=== PATIENT | female | born 1960 | race Caucasian/White ===

== ENCOUNTER 2023-02-10 09:48 | Outpatient (CLI) | payer MEDICARE, OTHER, SELFPAY ==
--- NOTE | 2023-02-10 10:08 | MM_ITS ---
WS: [email or web address] BILATERAL SCREENING DIGITAL TOMOSYNTHESIS MAMMOGRAM WITH CAD HISTORY: SCREENING COMPARISON: 07/29/2021, 12/24/2019 Bilateral CC and MLO views with tomosynthesis and synthetic mammography submitted. Computer aided det ection analyzed. Breast composition: There are scattered areas of fibroglandular density. No suspicious masses, microc alcifications or architectural distortion. IMPRESSION: MM/[place] [id number] BI-RADS: 2-Benign FOLLOW UP: 1 Year Follow-up
== END 2023-02-10 09:49 | disposition home or self-care (01) ==
LOC: RAD 09:53
PROVIDERS: PCP Family Medicine; Visit Provider Family Medicine
DX: Z12.31 Encounter for screening mammogram for malignant neoplasm of breast (principal)
CPT/HCPCS: 77063; 77067

== ENCOUNTER 2023-05-23 08:34 | Outpatient (CLI) | payer MEDICARE, OTHER, SELFPAY ==
--- NOTE | 2023-05-23 | MR_ITS ---
WS: [email or web address] MRI THORACIC SPINE without contrast HISTORY: THORACIC SPINE PAIN COMPARISON:, Right-sided pain TECHNIQUE: Multiplanar sequences are performed in sagittal and axial planes. Mild increase in thoracic kyphosis. No marrow edema or acute fracture. Signal within the cord is norm al. No cord enlargement or atrophy. No cord compression. Small central disc protrusions at T3-4, T4-5, T5-6, T7-8 and LEFT paracentral at T9-10, RIGHT paracentral at T6-7. None of the disc contact the thoracic cord. There is a larger cent ral disc protrusion at T12-L1 without cord contact. Facet joint arthritis most significant at T10-11 with moderate foraminal stenosis. IMPRESSION: 1. No acute thoracic spine fracture. 2. Multilevel small disc protrusions as above without cord contact. The largest disc protrusion is a t T11 L1. 3. Facet joint arthritis in the mid to lower thoracic spine. Most significant at T10-11 resulting in moderate foraminal stenosis.
--- NOTE | 2023-05-23 08:54 | MR_ITS ---
WS: [email or web address] MRI LUMBAR SPINE NONCONTRAST HISTORY: LOW BACK PAIN COMPARISON: None available. TECHNIQUE: Sagittal and axial multisequence imaging is submitted. Curvature and scoliosis thoracic and lumbar spines. Mild LEFT curvature lumbar spine. Slight increase in the lumbar lordosis. No marrow edema or acute fracture. Mild disc desiccation at L4-5 and L5-S1. Conus terminates normally at L1-2 disc level. T12-L1: Moderate size central disc protrusion with no nerve root contact. L1-L2: Very mild annular disc bulging. Shallow central disc protrusion. No stenosis. L2-L3: Mild annular disc bulging with ligamentum flavum and facet arthritis. Mild bilateral foraminal stenosis. L3-L4: Mild annular disc bulging with moderate ligamentum flavum and facet arthritis. No disc protrus ions. There is mild disc contact on the traversing L4 nerve roots. No foraminal stenosis. L4-L5: Diffuse annular disc bulging with marked facet joint arthritis and ligamentum flavum hypertrop hy. Encroachment upon the thecal sac resulting in moderate central and bilateral subarticular recess stenosis. Mild bilateral foraminal stenosis, LEFT greater than RIGHT. The most significant disc encro achment upon the RIGHT traversing L5 nerve root. L5-S1: Annular disc bulging encroaching upon the ventral thecal sac. Encroachment but no displacement of the S1 nerve roots. Disc and osteophyte encroachment causing mild bilateral foraminal stenosis. T here is very slight contact on the L5 nerve roots. Mild atherosclerosis aorta. Absent LEFT kidney. No kidney is identified in the renal bed. Marked enlargement of the liver. Liver measures at least 21.8 cm in length. IMPRESSION: 1. L4-5: Moderate central and bilateral subarticular recess stenosis due to disc and facet joint art hritis. Mild foraminal stenosis. There is disc contacting the RIGHT traversing L5 nerve root. 2. L5-S1: Mild bilateral foraminal stenosis with very slight disc contacting the L5 nerve roots. 3. T12-L1: Moderate size central disc protrusion. 4. L2-3: Mild foraminal stenosis. 5. L3-4: Moderate ligamentum flavum and facet arthritis. Very minimal disc contacting the traversing L4 nerve roots. 6. Absent LEFT kidney. 7. Marked hepatomegaly. Liver measures 21.8 cm in length.
== END 2023-05-23 08:35 | disposition home or self-care (01) ==
LOC: RAD 08:36
PROVIDERS: PCP Family Medicine; Visit Provider Family Medicine
DX: M54.50 Low back pain, unspecified (principal); M48.07 Spinal stenosis, lumbosacral region
CPT/HCPCS: 72146; 72148

== ENCOUNTER 2023-06-20 08:47 | Outpatient (CLI) | payer MEDICARE, SELFPAY ==
--- NOTE | 2023-06-20 08:52 | CT_ITS ---
WS: [email or web address] CT ABDOMEN WITH CONTRAST, 3 phase HISTORY: HEPATOMEGALY Contiguous single phase 3 mm axial imaging performed to the abdomen. Oral contrast has not been provi ded. Coronal and sagittal reformats are submitted. All CT scans at [facility] use at least on e of these dose optimization techniques: automated exposure control; mA and/or kV adjustment per luana ent size (includes targeted exams where dose is matched to clinical indication); or iterative reconst ruction. IV CONTRAST: Omnipaque 350; 100 mL IV. Oral contrast: No DLP: 1881.73 mGy.cm COMPARISON: Ultrasound liver 05/31/2023 Lower thorax: Lung bases are clear. Heart is normal size. Small hiatal hernia. Liver/biliary system: Liver is markedly enlarged extending over a length of 21.2 cm to the level of t he iliac crest. Hounsfield units are consistent with advanced hepatic steatosis. No enhancing masses. No cystic or solid mass. Normal portal vein. Gallbladder: Normally distended gallbladder with numerous small stones. No wall thickening or adjacen t inflammation. Pancreas: Normal size pancreas and pancreatic duct. No adjacent inflammation. Spleen: Normal size spleen. No mass or infarct. Adrenal glands: Normal. Right kidney: 13.5 cm in length. Kidney is slightly enlarged. There is no mass or obstruction. No sri cification. Left kidney: Prior nephrectomy. No recurrent mass in the renal bed. Aorta: Mild atherosclerosis with no aneurysm. Lymphadenopathy: None. Free fluid: None. GI tract: As visualized through the abdomen. No abnormality. There is no obstruction. Abdominal wall: Unremarkable abdominal wall. No hernia. Visualized osseous structures: Mild scoliosis. No expansile destructive bone lesions. IMPRESSION: 1. Status post LEFT nephrectomy. 2. Markedly enlarged liver with severe hepatic steatosis. No mass. 3. Cholelithiasis without acute cholecystitis.
[2023-06-20] MEDS: iohexol 350 mg/mL 500 mL Btl (per mL) IV (09:55)
== END 2023-06-20 08:48 | disposition home or self-care (01) ==
LOC: RAD 08:47
PROVIDERS: PCP Family Medicine; Visit Provider Family Medicine
DX: K76.0 Fatty (change of) liver, not elsewhere classified (principal); R16.0 Hepatomegaly, not elsewhere classified; Z90.5 Acquired absence of kidney; Z90.49 Acquired absence of other specified parts of digestive tract
CPT/HCPCS: 74170; Q9967

== ENCOUNTER 2025-03-12 07:10 | Outpatient (CLI) | payer MEDICARE, OTHER, SELFPAY ==
--- NOTE | 2025-03-12 07:20 | MR_ITS ---
WS: [email or web address] MRI CERVICAL SPINE NONCONTRAST TECHNIQUE: Sagittal T1, T2 and STIR imaging. Axial T2, gradient, and fiesta imaging. CLINICAL INFORMATION: LEFT CERVICAL RADICULOPATHY COMPARISON: None. FINDINGS: Straightening of the normal cervical lordosis. No high-grade central canal narrowing. Cord signal is normal. C2-C3: Mild facet arthropathy. Spinal canal and foramen are patent. C3-C4: Mild disc osteophyte ridging. Mild facet arthropathy. Spinal canal and foramen are patent. C4-C5: Mild disc bulging with mild facet arthropathy. Endplate ridging. Spinal canal and foramen are patent. C5-C6: Disc osteophyte complex with endplate ridging. Moderate RIGHT and mild LEFT bony foraminal narrowing. Mild facet arthropathy. C6-C7: Mild disc bulging with slight effacement of the ventral thecal sac. Mild facet arthropathy. Spinal canal and foramen are patent. C7-T1: Spinal canal and foramen are patent. Incidental hemangioma T4 vertebral body. Visualized brain stem structures: Normal. Prevertebral soft tissues: Normal. Partially visualized RIGHT thyroid nodule measuring 3.5 x 1.8 cm. This can be followed up with ultrasound on an elective basis. MR/MR cervical spin wo con* [id number] IMPRESSION: 1. Mild disc bulging C4-C6 with slight effacement of the ventral thecal sac. N o significant central canal stenosis. 2. Moderate RIGHT C5-C6 bony foraminal narrowing. Mild LEFT C5-6 foraminal mercedes rowing. 3. Mild to moderate facet arthropathy C4-C5 C5-C6 and C6-C7. 4. Partially visualized RIGHT thyroid nodule measuring 3.5 x 1.8 cm. This can be followed up with ultrasound on an elective basis.
== END 2025-03-12 07:11 | disposition home or self-care (01) ==
PROVIDERS: PCP Family Medicine; Visit Provider Family Medicine
DX: M50.321 Other cervical disc degeneration at C4-C5 level (principal); M50.322 Other cervical disc degeneration at C5-C6 level; M48.02 Spinal stenosis, cervical region; M47.812 Spondylosis without myelopathy or radiculopathy, cervical region; E04.1 Nontoxic single thyroid nodule; M48.03 Spinal stenosis, cervicothoracic region
CPT/HCPCS: 72141

== ENCOUNTER 2025-03-19 09:50 | Outpatient (CLI) | payer MEDICARE, OTHER, SELFPAY ==
--- NOTE | 2025-03-19 10:03 | MR_ITS ---
WS: [email or web address] MRI LUMBAR SPINE NONCONTRAST HISTORY: LUMBOSACRAL RADICULOPATHY COMPARISON: 05/23/2023 TECHNIQUE: Sagittal and axial multisequence imaging is submitted. Mild anterior wedging of T4 with a hemangioma. LEFT curvature lumbar spine. 2 mm anterolisthesis of L4. No acute fractures or marrow edema. Disc spaces are very slightly desiccated. Conus terminates normally at L1-2 disc level. T12-L1: Shallow central disc protrusion. No stenosis. Mild facet arthritis. L1-L2: Mild annular disc bulging with a shallow LEFT paracentral disc protrusion. Mild bilateral foraminal stenosis. L2-L3: Mild annular disc bulging. Shallow LEFT paracentral disc protrusion, mild ligamentum flavum and facet arthritis. Very minimal encroachment and narrowing of the LEFT subarticular recess. Mild bilateral foraminal stenosis. L3-L4: Mild disc bulging. Mild ligamentum flavum with moderate facet arthritis. Mild bilateral foraminal stenosis. L4-L5: Mild annular disc bulging with moderate facet joint arthropathy encroaching upon the central thecal sac. Trefoil appearance of the thecal sac. Moderate central, subarticular recess and mild bilateral foraminal stenosis. Shallow bilateral foraminal disc protrusions. L5-S1: Mild disc bulging with mild to moderate bilateral foraminal stenosis due to disc osteophyte and facet disease. There is mild disc osteophyte contact on the exiting L5 nerve roots and also the traversing S1 nerve roots. Absent LEFT kidney from the renal bed. MR/MR lumbar spine wo con* [id number] IMPRESSION: 1. Disc protrusion previously described at T12-L1 has decreased in size. 2. Moderate central, subarticular recess and mild bilateral foraminal stenosis at L4-5. Very slight progression of central stenosis. Disc does contact the tr aversing L5 nerve roots. 3. Moderate bilateral foraminal stenosis at L5-S1 due to disc osteophyte disea se. Mild contact on the exiting L5 nerve roots. Mild progression since the prio r study. 4. Shallow LEFT paracentral disc protrusion at L2-3. Minimal LEFT subarticular recess encroachment. 5. Mild bilateral foraminal stenosis at L1-2, L2-3 and L3-4.
== END 2025-03-19 09:51 | disposition home or self-care (01) ==
LOC: RAD 09:51
PROVIDERS: PCP Family Medicine; Visit Provider Family Medicine
DX: M47.26 Other spondylosis with radiculopathy, lumbar region (principal); M48.061 Spinal stenosis, lumbar region without neurogenic claudication; M48.07 Spinal stenosis, lumbosacral region; M51.16 Intervertebral disc disorders with radiculopathy, lumbar region; M51.17 Intervertebral disc disorders with radiculopathy, lumbosacral region
CPT/HCPCS: 72148

== ENCOUNTER 2025-03-20 07:27 | Outpatient (CLI) | payer MEDICARE, OTHER, SELFPAY ==
--- NOTE | 2025-03-20 07:31 | US_ITS ---
WS: [email or web address] THYROID ULTRASOUND HISTORY: NONTOXIC SINGLE THYROID NODULE COMPARISON: None. Right lobe: 2.5 cm x 2.2 cm x 4.3 cm (w x ap x l). Volume: 11.4 cm3. Enlarged RIGHT thyroid. The entire thyroid gland is replaced by a hypoechoic nodule with numerous scattered cystic areas. Mild increased vascularity. The entire nodule measures 2.6 x 1.8 x 3.5 cm. There are no echogenic foci. Left lobe: 1.0 cm x 1.0 cm x 3.2 cm (w x ap x l). Volume: 1.6 cm3. Normal sized gland. There are a few small colloid cysts scattered throughout the LEFT thyroid. No mass. Isthmus: 0.3 cm. US/US thyroid [id number] IMPRESSION: 1. TI-RADS 3; mildly suspicious. Recommend ultrasound-guided FNA RIGHT thyroid nodule.
== END 2025-03-20 07:28 | disposition home or self-care (01) ==
LOC: RAD 07:28
PROVIDERS: PCP Family Medicine; Visit Provider Family Medicine
DX: E04.2 Nontoxic multinodular goiter (principal)
CPT/HCPCS: 76536